=== PATIENT | female | born 1980 | race Caucasian/White ===

== ENCOUNTER → 2016-10-28 | Outpatient (CLI) | payer BC ==
[~2016-10-28] MED LIST: IBUP-1427 PO; OXYC5TAB PO; PRENTAB26 PO
== END | disposition home or self-care (01) ==
LOC: C.LAB 08:12
PROVIDERS: ATTEND Nutritionist
DX: R53.83 Other fatigue (principal)

== ENCOUNTER → 2017-04-23 | Outpatient (CLI) | payer BC ==
--- NOTE | 2017-04-23 12:57 | MAMMOGRAPHY REPORT ---
UNILATERAL LEFT DIGITAL DIAGNOSTIC MAMMOGRAM TOMOSYNTHESIS WITH CAD AND TARGETED LEFT ULTRASOUND: 03/28 CLINICAL HISTORY: The patient reports a palpable left breast lump for 1 month which is tender to palp ation. 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 TECHNIQUE: Breast tomosynthesis in addition to standard 2D mammography was performed. Current study was also evaluated with a Computer Aided Detection (CAD) system. Left CC and MLO 2-D and tomosynthes is images were obtained. COMPARISON: Comparison is made to exams dated: 02/27/2015 mammogram and 02/27/2015 ultrasound - [facility]. BREAST COMPOSITION: The tissue of the left breast is heterogeneously dense, which may obscure small masses. FINDINGS: A triangle marker aguilar the site of the palpable lump in the left upper outer quadrant. A t the site of the palpable lump there is an oval partially circumscribed and partially obscured 10 mm mass seen on the MLO view only. The mass appears stable compared to the February 2015 exam on the MLO v iew. The remainder of the left breast is stable compared to prior exams, without suspicious masses, calcifications, or areas of architectural distortion noted. Targeted ultrasound was performed of the area of the palpable lump pointed out by the patient, in the left breast at 1:00, 5 cm from the nipple. At the site of the palpable lump there is a superficial oval parallel circumscribed hypoechoic 8 x 4 x 8 mm mass. In the left breast at 2:00, 4 cm from the nipple, again noted is an oval parallel circumscribed hypoechoic mass which measures 9 x 3 x 7 mm. 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 The newly palpable alessandra mp in the left 1:00 breast appears similar to the stable left 2:00 breast mass and also likely repres ents a fibroadenoma. Additionally, it appears to be stable mammographically compared to the 2015 exa m. Recommend short interval follow-up mammograms and ultrasound of the left breast in 6 months to co nfirm stability. IMPRESSION: ACR-BI-RADS CATEGORY 3: PROBABLY BENIGN, TARGETED ULTRASOUND ACR-BI-RADS CATEGORY 3: PRO BABLY BENIGN 1. Circumscribed hypoechoic 8 mm mass in the left 1:00 breast at the site of the palpable lump point ed out by the patient. The mass appears stable mammographically compared to the February 2015 exam, and is probably benign and likely represents a fibroadenoma. Recommend follow-up diagnostic tomosynthesi s mammograms and ultrasound of the left breast in 6 months to reevaluate. 2. 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 The patient has been verbally notified of the results. Approximately 10% of breast cancers are not detected with mammography. A negative mammographic report should not delay biopsy if a clinically suggestive mass is present. Ingrid Pak M.D. ah/:04/23/2017 09:28:29 Hand Alterations Seamstress: Pedro LUIS)(Tegan), [facility] letter sent: Follow Up Recommended 3 BI-RADS Code: ACR-BI-RADS Category 3: Probably Benign Ultrasound BI-RADS: ACR-BI-RADS Category 3: Pr obably Benign
== END | disposition home or self-care (01) ==
LOC: C.MAMM 08:21
PROVIDERS: ATTEND Obstetrics & Gynecology
DX: N63 Unspecified lump in breast (principal)

== ENCOUNTER → 2017-10-27 | Outpatient (CLI) | payer OTHER ==
--- NOTE | 2017-10-27 15:24 | MAMMOGRAPHY REPORT ---
UNILATERAL LEFT DIGITAL DIAGNOSTIC MAMMOGRAM TOMOSYNTHESIS WITH CAD AND TARGETED LEFT ULTRASOUND: 09/29 CLINICAL HISTORY: The patient presents for short interval follow-up of a benign-appearing left breast mass. TECHNIQUE: Breast tomosynthesis in addition to standard 2D mammography was performed. Current study was also evaluated with a Computer Aided Detection (CAD) system. Left CC and MLO 2-D and tomosynthes is images were obtained. COMPARISON: Comparison is made to exams dated: 04/23/2017 ultrasound, 04/23/2017 mammogram, 02/27/2015 u ltrasound, and 02/27/2015 mammogram - [facility]. BREAST COMPOSITION: The tissue of the left breast is heterogeneously dense, which may obscure small masses. FINDINGS: The previously seen oval partially circumscribed and partially obscured 10 mm mass within the left superior breast seen on the MLO view only is stable compared to the March 2017 exam as well a s February 2015 exam. The remainder of the left breast is also stable, without suspicious masses, calcif ications, or areas of architectural distortion noted. Targeted ultrasound was performed of the area of the previously seen left breast mass. In the left b reast at 1:00, 5 cm from the nipple, again noted is an oval circumscribed hypoechoic 7 x 3 x 9 mm mas s. This is not significantly changed compared to the March 2017 exam. This corresponds with the mamm ographic mass which has been stable dating back to 2014 and is probably benign and likely represents a fibroadenoma. 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 IMPRESSION: ACR-BI-RADS CATEGORY 3: PROBABLY BENIGN, TARGETED ULTRASOUND ACR-BI-RADS CATEGORY 3: PRO BABLY BENIGN 1. Circumscribed hypoechoic 9 mm mass in the left 1:00 breast is stable compared to the March 2017 ult rasound exam, and is likely stable mammographically dating back to the February 2015 exam. The mass is p robably benign and likely represents a fibroadenoma. As the mass is best seen on ultrasound, recomme nd short interval follow-up targeted ultrasound of the left breast in 6 months to confirm longer stab ility. 2. 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 This can also be reassessed in 6 months on ultrasound. The patient has been verbally notified of the results. Approximately 10% of breast cancers are not detected with mammography. A negative mammographic report should not delay biopsy if a clinically suggestive mass is present. Ingrid Pak M.D. ah/:10/27/2017 08:42:41 Associate Professor Of Economics: Liberty PEACOCK(R)(M), [facility] letter sent: Follow Up Recommended 3 BI-RADS Code: ACR-BI-RADS Category 3: Probably Benign Ultrasound BI-RADS: ACR-BI-RADS Category 3: Pr obably Benign
== END | disposition home or self-care (01) ==
LOC: C.MAMM 07:56
PROVIDERS: ATTEND Obstetrics & Gynecology
DX: N63.20 Unspecified lump in the left breast, unspecified quadrant (principal)

== ENCOUNTER → 2018-04-26 | Outpatient (CLI) | payer OTHER ==
--- NOTE | 2018-04-26 15:23 | MAMMOGRAPHY REPORT ---
ULTRASOUND OF BOTH BREASTS: 04/26/2018 CLINICAL HISTORY: 37-year-old woman presents for follow-up in the left breast for 2 benign-appearing masses identified on ultrasound in the 1:00 and 2:00 axes. COMPARISON: No prior exams were available for comparison. FINDINGS: Targeted ultrasound was performed in the left breast 1:00 and 2:00 axes, 5 cm from the nipp le. The ultrasound images performed in the 2:00 axis, 5 cm from the nipple, were initially mislabe led as 1:00 axis, 2 cm from the nipple. This was subsequently corrected and the study was resent wit h proper labeling. In the 1:00 left breast, 5 cm from the nipple, there is an oval parallel circumscribed hypoechoic lauri id-appearing mass measuring 8.1 x 3.3 x 8.3 mm. In the 2:00 axis, 5 cm from the nipple, there is an oval parallel circumscribed hypoechoic solid-appearing mass measuring 6.9 x 2.5 x 9.5 mm. This 2:00 mass appears similar dating back to February 27, 2015, at which time it measured 6.2 x 3.1 x 8.1 mm, and J [email or web address] at which time it measured 7.2 x 2.7 x 9.4 mm. Another 1 year follow-up targeted left breast ultrasound in the 2:00 and 1:00 axes is recommended to ensure at least 2 years of stability of both masses to confirm benignity. Could also consider baseli ne bilateral mammography at that time. IMPRESSION: ACR-BI-RADS CATEGORY 3: PROBABLY BENIGN 1. Stable targeted sonographic appearance of benign-appearing circumscribed solid masses in the 1:00 and 2:00 axes of the left breast, 5 cm from the nipple. Another 12 month follow-up targeted left br east ultrasound is recommended to ensure at least 2 years of stability of both masses to confirm jasmyn gnity. 2. At the time of next follow-up, could consider bilateral baseline mammograms as well. These results recommend issues were discussed with the patient at the time of the exam. She tentativ yadiel scheduled a follow-up appointment prior to leaving our department. Gladis Carrizales M.D. ay/:04/26/2018 08:35:10 [employer] Program Director: Gladis Carrizales, [facility] letter sent: Follow Up Recommended 3 BI-RADS Code: ACR-BI-RADS Category 3: Probably Benign
== END | disposition home or self-care (01) ==
LOC: C.MAMM 07:52
PROVIDERS: ATTEND Obstetrics & Gynecology
DX: N63.21 Unspecified lump in the left breast, upper outer quadrant (principal)